=== PATIENT | male | born 1960 | race Caucasian/White ===

== ENCOUNTER 2016-11-22 09:47 | Emergency (ER) | payer SELFPAY | END 2016-11-22 09:50 | disposition left against medical advice (07) | LOC: CED 09:47 | DX: Z53.21 Procedure and treatment not carried out due to patient leaving prior to being seen by health care provider (principal) ==

== ENCOUNTER → 2016-11-22 | Outpatient (CLI) | payer OTHER | LOC: BMCIMAGING 11:59 | PROVIDERS: ATTEND Family Medicine | DX: M79.9 Soft tissue disorder, unspecified (principal) ==